=== PATIENT | female | born 1960 | race African-American/Black ===

== ENCOUNTER 2016-05-30 10:08 | Emergency (ER) | payer MEDICAID ==
[~2016-05-30] VITALS: Ht 175.3 cm; Wt 81.8 kg
[~2016-05-30 10:08] MED LIST: CELE100 PO; DOXY150T PO; HYDR-3965 PO; IBUP-2070 PO; LEVO50TA11 PO; METO-323 PO; METR500 PO; QUET50TA PO
[2016-05-30] MEDS ORDERED: GABA-531 PO (10:28)
[2016-05-30] MEDS ORDERED: PANT40TA25 PO (10:28)
[2016-05-30] MEDS ORDERED: LORA10TA7 PO (10:28)
[2016-05-30] MEDS ORDERED: QUEtiapine FUMARATE 100 MG TABLET PO ONE (10:45)
[2016-05-30 12:21] VITALS: BP 141/87
== END 2016-05-30 12:25 | disposition home or self-care (01) ==
LOC: EMS 10:09
DX: F41.9 Anxiety disorder, unspecified (principal); F31.9 Bipolar disorder, unspecified; I10 Essential (primary) hypertension; F17.200 Nicotine dependence, unspecified, uncomplicated; Z76.0 Encounter for issue of repeat prescription
CPT/HCPCS: 99284

== ENCOUNTER 2019-06-17 08:40 | Emergency (ER) | payer MEDICAID, OTHER ==
[~2019-06-17] VITALS: Ht 172.7 cm; Wt 86.0 kg
[~2019-06-17 08:40] MED LIST changes: -DOXY150T PO; +GABA-531 PO; +LORA10TA7 PO; -METO-323 PO; +METO-408 PO; -METR500 PO; +PANT40TA25 PO
[2019-06-17] MEDS ORDERED: CefTRIAXone SODIUM 250 MG in DEXTROSE 5%-WATER 50 ML IV ONE (09:00)
[2019-06-17] MEDS ORDERED: AZITHROMYCIN 250 MG TABLET PO ONE (09:00)
[2019-06-17] MEDS ORDERED: SODIUM CHLORIDE 0.9% 1,000 ML IV ONE ×2 (09:00→12:00)
[2019-06-17] MEDS ORDERED: FLUCONAZOLE 150 MG TABLET PO ONE (09:00)
[2019-06-17] MEDS ORDERED: MetroNIDAZOLE 500 MG TABLET PO ONE (09:00)
[2019-06-17] MEDS ORDERED: ACETAMINOPHEN 500 MG TABLET PO ONE (09:00)
[2019-06-17 09:09] LABS: BASOPHILS % (AUTO) 0.3 % (0.0-2.0); EOSINOPHILS % (AUTO) 0.8 % (1.0-6.0); HEMATOCRIT 38.9 % (36-46); LYMPHOCYTES # (AUTO) 0.4 K/uL (1.0-4.8); LYMPHOCYTES % (AUTO) 4.1 % (22.0-44.0); MEAN CORPUSCULAR HEMOGLOBIN 31.2 pg (26.0-34.0); MEAN CORPUSCULAR HGB CONC 33.3 G/dL (31.0-37.0); MEAN CORPUSCULAR VOLUME 94 fL (80-100); MONOCYTES # (AUTO) 0.5 K/uL (0.1-1.0); MONOCYTES % (AUTO) 6.1 % (2.0-9.0); NEUTROPHILS # (AUTO) 7.7 K/uL (1.8-7.7); PLATELET COUNT (AUTO) 195 K/uL (150-450); RED BLOOD CELL COUNT(AUTO) 4.15 MIL/uL (4.00-5.20); RED CELL DISTRIBUTION WIDTH 12.7 % (11.5-14.5)
[2019-06-17 09:10] LABS: NEUTROPHILS % (AUTO) 88.7 % (40.0-70.0)
[2019-06-17 09:18] LABS: ANION GAP 4 mmol/L (8-16); CALCIUM, TOTAL 9.2 mg/dL (8.8-10.5); CARBON DIOXIDE 30 mmol/L (22-29); CHLORIDE 103 mmol/L (98-107); CREATININE 0.86 mg/dL (0.60-1.30); GLOMERULAR FILTR. RATE CALC > 60 mL/min (>60); GLUCOSE,RANDOM 97 mg/dL (70-110); POTASSIUM 3.9 mmol/L (3.5-5.1); SODIUM SERUM 137 mmol/L (136-145); UREA NITROGEN, BLOOD 15 mg/dL (7-18)
[2019-06-17] MEDS ORDERED: ONDANSETRON HCL 4 MG/2 ML VIAL IVP ONE (09:30)
[2019-06-17 09:31] LABS: ALANINE AMINOTRANSFERASE 24 U/L (12-78); ALBUMIN 3.9 g/dL (3.4-5.0); ALKALINE PHOSPHATASE 71 U/L (46-116); ASPARTATE AMINOTRANSFERASE 19 U/L (15-37); BILIRUBIN,TOTAL 0.7 mg/dL (0.1-1.0); HCG,QUANTITATIVE 1 mIU/mL (0-6); LIPASE 122 U/L (73-393); TOTAL PROTEIN, SERUM 7.6 g/dL (6.4-8.2)
[2019-06-17] MEDS ORDERED: FAMOTIDINE 10 MG/ML 2 ML VIAL IVP ONE (10:00)
[2019-06-17] MEDS ORDERED: MAG HYDROX/AL HYDROX/SIMETH 30 ML SUSP UDCUP PO ONE (10:00)
[2019-06-17] MEDS ORDERED: KETOROLAC TROMETHAMINE 30 MG/ML VIAL IVP ONE (10:45)
[2019-06-17] MEDS ORDERED: GABAPENTIN 400 MG CAPSULE PO ONE (12:15)
[2019-06-17] MEDS ORDERED: LIDOCAINE 5% TRANSDERMAL PATCH TD ONE (12:15)
[2019-06-17] MEDS ORDERED: QUEtiapine FUMARATE 100 MG TABLET PO ONE (13:15)
[2019-06-17] MEDS ORDERED: MORPHINE SULFATE 2 MG/ML SYRINGE IVP ONE (13:30)
[2019-06-17] MEDS ORDERED: IOVERSOL 350 MG/ML 150 ML VIAL ONE (13:42)
[2019-06-17] MEDS ORDERED: SODIUM CHLORIDE 0.9% 100 ML ONE (13:42)
[2019-06-17 18:39] LABS: APPEARANCE,URINE CLEAR (CLEAR); BILIRUBIN,URINE NEGATIVE (NEGATIVE); GLUCOSE, URINE (UA) NEGATIVE (NEGATIVE); KETONES,URINE NEGATIVE (NEGATIVE); LEUKOCYTE ESTERASE ,URINE MODERATE (NEGATIVE); NITRATE,URINE NEGATIVE (NEGATIVE); OCCULT BLOOD,URINE NEGATIVE (NEGATIVE); PROTEIN,URINE POS 1+ (NEGATIVE)
[2019-06-17 18:43] LABS: AMPHET/METH SCREEN,URINE NEGATIVE (NEGATIVE); BARBITURATE SCREEN, URINE NEGATIVE (NEGATIVE); BENZODIAZEPINES SCREEN,URINE NEGATIVE (NEGATIVE); CANNABINOID SCREEN,URINE NEGATIVE (NEGATIVE); COCAINE SCREEN,URINE POSITIVE (NEGATIVE); METHADONE SCREEN, URINE NEGATIVE (NEGATIVE); OPIATE SCREEN,URINE POSITIVE (NEGATIVE)
[2019-06-17 18:44] LABS: PHENCYCLIDINE SCREEN,URINE NEGATIVE (NEGATIVE)
[2019-06-17 18:47] LABS: RBC,URINE None Seen /HPF (0-2); WBC,URINE >100 /HPF (0-5)
[2019-06-17 18:49] LABS: BACTERIA,URINE Few /HPF (None Seen)
[2019-06-17 18:50] LABS: SQUAMOUS EPITHELIAL CELL,UR Few /LPF (None Seen)
[2019-06-17 19:37] VITALS: BP 126/74
== END 2019-06-17 21:30 | disposition home or self-care (01) ==
LOC: EMS 08:44
DX: N89.8 Other specified noninflammatory disorders of vagina (principal); N73.9 Female pelvic inflammatory disease, unspecified; D39.0 Neoplasm of uncertain behavior of uterus; F41.9 Anxiety disorder, unspecified; F31.9 Bipolar disorder, unspecified; I10 Essential (primary) hypertension; F14.90 Cocaine use, unspecified, uncomplicated
CPT/HCPCS: 36415; 71045; 74177; 76830; 76856; 80053; 80307; 81001; 83690; 83880; 84484; 84702; 85025; 85379; 87086; 87491; 87591; 93005; 93971; 96365; 96366; 96375; 99285; J0696; J1885; J2270; J2405; J3490; J7030; J7050; J7060; Q9967